=== PATIENT | male | born 1975 | race Caucasian/White ===

== ENCOUNTER → 2021-01-05 | Outpatient (CLI) | payer OTHER ==
[~2021-01-05] MED LIST: HYDROCHLOROTHIA25 MG PO; LISINOPRIL40 MG PO; MELOXICAM7.5 MG PO; NEURONTIN 300300 MG PO; NORVASC5 MG PO; PRILOSEC OTC20 MG PO; TIZANIDINE HCL4 M1 PO; TRAMADOL HCL50 MG PO; ZYLOPRIM 100 M100 MG PO
== END ==
LOC: EXRD 08:54
DX: M25.561 Pain in right knee (principal)
CPT/HCPCS: 73564